=== PATIENT | male | born 1945 | race Caucasian/White ===

== ENCOUNTER → 2017-10-03 10:30 | Outpatient (CLI) | payer MEDICARE, BC, SELFPAY ==
[2017-10-03 13:02] LABS: Prostate Specific Ag, Diagnost 1.35 ng/mL (0.0-4.0)
== END ==
PROVIDERS: PCP Family Medicine; Visit Provider Urology
DX: N40.0 Benign prostatic hyperplasia without lower urinary tract symptoms (principal)
CPT/HCPCS: 36415; 84153

== ENCOUNTER → 2019-04-09 09:33 | Outpatient (CLI) | payer MEDICARE, BC, SELFPAY ==
[2019-04-09 12:31] LABS: Prostate Specific Ag Screen 1.6 ng/mL (0.0-4.0)
== END ==
PROVIDERS: Visit Provider Urology
DX: N40.1 Benign prostatic hyperplasia with lower urinary tract symptoms (principal); Z12.5 Encounter for screening for malignant neoplasm of prostate
CPT/HCPCS: 36415; G0103

== ENCOUNTER → 2020-05-02 14:28 | Outpatient (CLI) | payer MEDICARE, BC, SELFPAY ==
[2020-05-02 17:59] LABS: Prostate Specific Ag Screen 1.5 ng/ml (0.0-4.0)
== END ==
PROVIDERS: Visit Provider Urology
DX: Z12.5 Encounter for screening for malignant neoplasm of prostate (principal)
CPT/HCPCS: 36415; G0103

== ENCOUNTER → 2021-05-02 13:35 | Outpatient (CLI) | payer MEDICARE, BC, SELFPAY | PROVIDERS: Visit Provider Urology | DX: N40.0 Benign prostatic hyperplasia without lower urinary tract symptoms (principal) | CPT/HCPCS: 36415; 84153 ==

== ENCOUNTER → 2022-05-04 14:10 | Outpatient (CLI) | payer MEDICARE, BC, SELFPAY ==
[2022-05-04 15:58] LABS: Prostate Specific Ag Screen 1.3 ng/ml (0.0-4.0)
== END ==
PROVIDERS: PCP Family Medicine; Visit Provider Urology
DX: Z12.5 Encounter for screening for malignant neoplasm of prostate (principal)
CPT/HCPCS: 36415; G0103

== ENCOUNTER 2022-10-28 09:32 | Emergency (ER) | payer MEDICARE, BC, SELFPAY ==
[2022-10-28 09:40] VITALS: BP 112/70; PULSE 72; RESP 20; TEMP 36.6; O2SAT 96; BMI 24.7
--- NOTE | 2022-10-28 09:40 | EXP.UTC ---
Discharge Plan Disposition Patient Disposition: Home, Self-Care Condition: Good Prescriptions Prescriptions: New ciprofloxacin HCl [Cipro] 500 mg tablet 500 mg PO BID 14 Days Qty: 28 0RF No Action esomeprazole magnesium 40 mg capsule,delayed release(DR/EC) 40 mg PO QHS 30 Days Qty: 30 Referrals Follow up/Referrals: Provider,Referral, [Primary Care Provider] - See instructions Activity Restrictions/Add. Instructions Additional Instructions/Restrictions: Drink plenty of fluids. Take tylenol or ibuprofen for pain or fever. Take the medications as directed. Follow up with your regular doctor. GO TO THE ER FOR ANY WORSENING SYMPTOMS Try to follow up in 10 days or so to have your urine rechecked to make sure the infection is completely gone. It could come back once you finish the antibiotics if its not all the way gone. Clinical Impressions Clinical Impression: UTI (urinary tract infection) Instructions Patient Instructions: DI for Urinary Tract Infection (UTI), Ceftriaxone Injection Discharge ED Provider: Adama Akhtar [facility] General Stated complaint: walsh and frequent urinating Time Seen by Provider: 10/28/22 09:40 History of Present Illness Provider Complaint: He states that for the past 2 days he has had dysuria, low back pain. Last night he started having a low grade fever. Related Data Home Medications Medication Instructions Recorded Confirmed esomeprazole magnesium 40 mg 40 mg PO QHS GERD 30 days #30 caps 04/03/18 10/28/22 capsule,delayed release Previous Rx's Medication Instructions Recorded ciprofloxacin HCl 500 mg tablet 500 mg PO BID 14 days #28 tabs 10/28/22 (Cipro) Allergies Allergy/AdvReac Type Severity Reaction Status Date / Time No Known Allergies Allergy Verified 10/28/22 09:59 [facility] Disclaimer: The information contained in this section may have been updated after the patient was seen, as this information can be updated by other users. Social History Smoking Status: Never smoker second hand exposure: No alcohol intake: current counseling provided: none substance use type: other current occupational status: other Travel in the last 8 weeks: None housing: house ROS Obtained: Yes All systems reviewed & no additional complaints except as documented Constitutional Constitutional: Denies chills, Reports fatigue and Reports fever(s) Eyes Eyes: Denies eye discharge ENT Ears, Nose, Mouth, and Throat: Denies dizziness, Denies otalgia and Denies sore throat Cardiovascular Cardiovascular: Denies chest pain Respiratory Respiratory: Denies shortness of breath, Denies chest congestion, Denies cough, Denies stridor and Denies wheezing Gastrointestinal Gastrointestingal: Denies abdominal pain, nausea or vomiting Genitourinary Male Genitourinary: Reports as per HPI, Denies testicular pain, Reports urinary frequency, Reports urinary hesitancy and Denies urinary incontinence Musculoskeletal Musculoskeletal: Reports as per HPI and Reports arthralgias Integumentary/Breasts Skin/Breast: Denies rash Neurologic Neurologic: Denies dizziness and Denies paresthesias Endocrine Endocrine: Reports fatigue Allergic/Immunologic Allergic/Immunologic: Denies wheezing Physical Exam General General appearance: alert and in no apparent distress Head Head exam: atraumatic, normocephalic and normal inspection Eye Eye exam: Present normal appearance, PERRL and EOMI ENT ENT exam: Present normal exam, normal oropharynx, mucous membranes moist, TM's normal bilaterally and normal external ear exam Neck Neck exam: Present normal inspection, full ROM and trachea midline; Absent meningismus or lymphadenopathy Chest Chest inspection: Present normal inspection and symmetric chest wall rise; Absent tenderness Respiratory Respiratory exam: Present normal lung sounds bilaterally; Absent respiratory distress Cardiovascular Cardiovascular ex
[2022-10-28 10:03] LABS: Apearance,Urine Clear (Clear); Color,Urine Yellow (Yellow)
[2022-10-28 10:04] LABS: Bilirubin,Urine Negative (Negative); Blood, Urine Trace (Negative); Glucose,Urine (UA) Negative (Negative); Ketones,Urine Negative (Negative); Protein,Urine Trace (Negative); UTC Leukocyte Esterase,Urine 1+ (Negative); UTC Nitrate,Urine Negative (Negative); Urobilinogen,Urine 0.2 EU/dl (0.2)
[2022-10-28 10:42] VITALS: BP 112/70; PULSE 72; RESP 20; TEMP 36.6; O2SAT 96
== END 2022-10-28 10:42 | disposition home or self-care (01) ==
PROVIDERS: Emergency Provider Nurse Practitioner Family
DX: N39.0 Urinary tract infection, site not specified (principal)
CPT/HCPCS: 81003; 87086; 96372; 99212; 99213; G0463; J0696

== ENCOUNTER 2022-10-30 13:43 | Emergency (ER) | payer MEDICARE, BC, SELFPAY ==
[2022-10-30 13:55] VITALS: BP 139/71; PULSE 77; RESP 19; TEMP 36.5; O2SAT 98; BMI 24.5
--- NOTE | 2022-10-30 14:12 | EXP.UTC ---
Discharge Plan Disposition Patient Disposition: Home, Self-Care Condition: Good Prescriptions Prescriptions: New phenazopyridine [Pyridium] 200 mg tablet 200 mg PO Q8H 2 Days Qty: 6 0RF No Action esomeprazole magnesium 40 mg capsule,delayed release(DR/EC) 40 mg PO QHS 30 Days Qty: 30 ciprofloxacin HCl [Cipro] 500 mg tablet 500 mg PO BID Referrals Follow up/Referrals: Provider,MD Colette [Primary Care Provider] - See instructions Femi Burris MD [Referring] - See instructions (Call office for appointment) Activity Restrictions/Add. Instructions Additional Instructions/Restrictions: Your Urine Culture should be back in the next 48 hours to see if it grows any bacterial Return if needed Call Dr Burris office and make appointment for further evaluation and examination Go straight to the ER if any life threatening symptoms or any worsening of pain Make sure to drink plenty of fluids Follow up with your Family Doctor on Saturday if possible to discuss Urine Culture and further treatment Clinical Impressions Clinical Impression: Burning with urination Instructions Patient Instructions: DI for Dysuria -- Adult Discharge ED Provider: Joanne Patel [facility] General Stated complaint: Possible UTI Burning Mode of Arrival: Ambulatory Source of Information: Patient Limitations: No Limitations Time Seen by Provider: 10/30/22 14:12 Description of Symptoms (Recalled from Triage Doc. by RN): PATIENT REPORTS HE WAS SEEN AND TREATED FOR A UTI 2 DAYS AGO AND STATES SYMPTOMS ARE NOT BETTER. HEENT Symptoms (Recalled from RN notes): No Resp Symptoms (Recalled from RN notes): No Skin Symptoms (Recalled from RN notes): No MS Symptoms (Recalled from RN notes): No Functional Status (Recalled from RN notes): WNL History of Present Illness Provider Complaint: Patient states that he was seen and treated for UTI 2 days ago and back today to get his urine rechecked States that he has been taking the medication and it is a little better but still having some burning when he urinates and wanted to get his urine checked again he thought he would feel better by now Related Data Home Medications Medication Instructions Recorded Confirmed esomeprazole magnesium 40 mg 40 mg PO QHS GERD 30 days #30 caps 04/03/18 10/30/22 capsule,delayed release ciprofloxacin HCl 500 mg tablet 500 mg PO BID UTI 10/30/22 10/30/22 (Cipro) Previous Rx's Medication Instructions Recorded phenazopyridine 200 mg tablet 200 mg PO Q8H pain 2 days #6 tabs 10/30/22 (Pyridium) Allergies Allergy/AdvReac Type Severity Reaction Status Date / Time No Known Allergies Allergy Verified 10/28/22 09:59 Worker's Comp Is this a Worker's Comp case?: No [facility] Disclaimer: The information contained in this section may have been updated after the patient was seen, as this information can be updated by other users. Medical History (Updated 10/30/22 @ 14:41 by Joanne Patel APRN) History of gastroesophageal reflux (GERD) Kidney stone Prostate disorder Urinary tract infection Social History (Updated 10/30/22 @ 14:08 by Apryl Rico RN) Smoking Status: Never smoker second hand exposure: No alcohol intake: current counseling provided: none substance use type: other current occupational status: other Travel in the last 8 weeks: None housing: house ROS Obtained: Yes All systems reviewed & no additional complaints except as documented and Yes Systems reviewed as appropriate & no additional complaints except as documented Constitutional Constitutional: Reports system reviewed and no additional complaints, except as documented, Reports as per HPI, Denies body ache, Denies chills and Denies fever(s) ENT Ears, Nose, Mouth, and Throat: Reports system reviewed and no additional complaints, except as documented and Reports as per HPI Cardiovascular Cardiovascular: Reports system reviewed and no additional compla
[2022-10-30 14:14] LABS: Apearance,Urine Clear (Clear); Bilirubin,Urine Negative (Negative); Blood, Urine Trace (Negative); Color,Urine Dark Yellow (Yellow); Glucose,Urine (UA) Negative (Negative); Ketones,Urine Negative (Negative); PH,Urine 5.5 (5.0-8.5); Protein,Urine Trace (Negative); UTC Leukocyte Esterase,Urine Trace (Negative); UTC Nitrate,Urine Negative (Negative); Urobilinogen,Urine 0.2 EU/dl (0.2)
[2022-10-30 14:22] VITALS: BP 139/71; PULSE 77; RESP 19; TEMP 36.5; O2SAT 98
== END 2022-10-30 14:50 | disposition home or self-care (01) ==
PROVIDERS: Emergency Provider Nurse Practitioner
DX: R30.0 Dysuria (principal)
CPT/HCPCS: 81003; 87086; 99212; G0463

== ENCOUNTER → 2022-10-31 11:08 | Outpatient (CLI) | payer MEDICARE, BC, SELFPAY ==
[2022-10-31 11:36] LABS: MANUAL DIFFERENTIAL MANUAL DIFFERENTIAL (MANUAL DIFF); Microscopic, Urine URINE MICROSCOPIC (MICROSCOPIC)
--- NOTE | 2022-10-31 11:55 | CT_ITS ---
PROCEDURE INFORMATION: Exam: CT Abdomen And Pelvis Without Contrast Exam date and time: 10/31/2022 11:59 AM Age: 77 years old Clinical indication: Patient HX: Pelvic pain, ? stone; Additional info: Stone protocol TECHNIQUE: Imaging protocol: Computed tomography of the abdomen and pelvis without contrast. Radiation optimization: All CT scans at this facility use at least one of these dose optimization techniques: automated exposure control; mA and/or kV adjustment per patient size (includes targeted exams where dose is matched to clinical indication); or iterative reconstruction. Other protocol: This patient has received 0 known CTs and 0 known cardiac nuclear medicine studies in the 12 months prior to the current study. COMPARISON: ABDPELW/O CT ABD PELVIS W/O CONTRAST 12/05/2015 2:22 PM FINDINGS: Limitations: The absence of intravenous contrast limits the assessment of vascular structures, lesions and lymphadenopathy. Lungs: Lung bases are unremarkable. Diaphragm: Small hiatal hernia noted. Liver: There are variably-sized liver cysts. 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 Gallbladder and bile ducts: Gallbladder is distended without radiopaque cholelithiasis. No biliary ductal dilation. Pancreas: No peripancreatic fluid stranding. No main pancreatic ductal dilation. Spleen: No splenomegaly. Adrenal glands: The adrenal glands are normal. Kidneys and ureters: Ptosis of the right kidney. There are variably-sized renal cysts. .Nonobstructive left nephrolithiasis noted. No hydroureteronephrosis on either left side. Stomach and bowel: No bowel wall thickening or distention. Appendix: A normal appendix is identified. Intraperitoneal space: There is no evidence of free intraperitoneal or pelvic fluid. Vasculature: Aorta is nonaneurysmal. Lymph nodes: No evidence of retroperitoneal or mesenteric lymphadenopathy. Urinary bladder: Urinary bladder is unremarkable. Reproductive: Prostate is enlarged. Bones/joints: Unremarkable. No acute fracture. Soft tissues: Unremarkable. IMPRESSION: Ptosis of the right kidney. Punctate nonobstructive left nephrolithiasis without hydroureteronephrosis on either side. COMMENTS: Consistent with the [employer]'s Incidental Findings Committee white paper (J Am Dina Radiol 2018): Any incidental renal lesion less than 1 cm or classified as too small to characterize, or any incidental cystic renal lesion characterized as simple-appearing, is likely benign. No follow-up imaging is recommended for these lesions per consensus recommendations based on imaging criteria.
[2022-10-31 11:58] LABS: Basophils # 0.1 K/mm3 (0-0.2); Basophils % 2.1 % (0.1-2.0); Eosinophils # 0.2 K/mm3 (0.0-0.4); Eosinophils % 3.4 % (0.1-12.0); Hematocrit 44.7 % (42.0-52.0); Hemoglobin 14.6 g/dL (14.1-18.0); Lymphocytes # 1.2 K/mm3 (0.7-4.5); Lymphocytes % 21.6 % (10-50); Mean Corpuscular HGB Conc 32.6 g/dL (31.8-35.4); Mean Corpuscular Hemoglobin 31.9 pg (27.0-31.2); Mean Corpuscular Volume 97.6 fl (80-94); Mean Platelet Volume 8.2 fl (7.4-10.4); Monocytes # 0.3 K/mm3 (0.1-1.0); Monocytes % 5.6 % (1.7-9.3); Neutrophils # 3.8 K/mm3 (1.8-7.8); Neutrophils % 67.3 % (37.0-80.0); Platelet Count 353 K/mm3 (142-424); Red Blood Count 4.58 M/mm3 (4.60-6.20); Red Cell Distribution Width 12.6 % (11.5-17.5); White Blood Count 5.6 K/mm3 (4.8-10.8)
[2022-10-31 12:07] LABS: Appearance,Urine CLEAR (Clear); Bilirubin,Urine Negative (Negative); Blood, Urine Negative (Negative); Color,Urine YELLOW (Yellow); Glucose,Urine (UA) Negative (Negative); Ketones,Urine Negative (Negative); Leukocyte Esterase,Urine TRACE (Negative); Nitrate,Urine POSITIVE (Negative); PH,Urine 6.5 (5.0-8.5); Protein,Urine TRACE (Negative); Specific Gravity, Urine <= 1.005 (1.005-1.030); Urobilinogen,Urine 0.2 EU/dl (0.2)
[2022-10-31 12:34] LABS: Amorphous Sediment,Urine Trace /lpf; Squamous Epithelial Cell,Urine Occasional #/hpf (0-5)
[2022-10-31 12:36] LABS: Alanine Aminotransferase 18 U/L (12-78); Albumin Level 4.2 g/dl (3.5-5.0); Albumin/Globulin Ratio 1.4 (1.1-1.8); Alkaline Phosphatase 69 U/L (38-126); Anion Gap 12.3 mEq/L (5-15); Aspartate Amino Transferase 30 U/L (17-59); Bilirubin,Total 0.6 mg/dl (0.2-1.3); Blood Urea Nitrogen 13 mg/dl (9-20); Calcium 8.8 mg/dl (8.4-10.2); Carbon Dioxide 30 mmol/L (22.0-30.0); Chloride 101 mmol/L (98-107); Estimated Glomerular Filt Rate 73 ml/min (>60); GFR (African American) 88 ML/MIN (>60); Globulin 2.9 g/dL (1.3-3.2); Glucose 99 mg/dl (74-100); Potassium 4.3 mmoL/L (3.5-5.1); Sodium 139 mmol/L (136-145); Total Protein,Serum 7.1 g/dl (6.3-8.2)
[2022-10-31 13:07] LABS: Prostate Specific Ag Screen 19.9 ng/ml (0.0-4.0)
[2022-10-31 13:33] LABS: Eosinophils % 2 % (0-3); Lymphocytes % 22 % (10-50); Monocytes % 7 % (2-9); Neutrophils % 69 % (42-76); Platelet Estimate Normal; RBC Morphology Normal; Total Cells Counted 100
== END ==
PROVIDERS: PCP Family Medicine; Visit Provider Family Medicine
DX: R30.0 Dysuria (principal); R34 Anuria and oliguria; Z12.5 Encounter for screening for malignant neoplasm of prostate
CPT/HCPCS: 36415; 74176; 80053; 81001; 85007; 85014; 85018; 85048; 85049; G0103

== ENCOUNTER → 2023-01-15 14:17 | Outpatient (CLI) | payer MEDICARE, BC, SELFPAY ==
[2023-01-15 16:49] LABS: Alanine Aminotransferase 17 U/L (12-78); Albumin Level 3.9 g/dl (3.5-5.0); Albumin/Globulin Ratio 1.8 (1.1-1.8); Alkaline Phosphatase 74 U/L (38-126); Anion Gap 11.6 mEq/L (5-15); Aspartate Amino Transferase 27 U/L (17-59); Bilirubin,Total 0.5 mg/dl (0.2-1.3); Blood Urea Nitrogen 17 mg/dl (9-20); Calcium 8.6 mg/dl (8.4-10.2); Carbon Dioxide 27 mmol/L (22.0-30.0); Chloride 105 mmol/L (98-107); Chol/HDL Ratio 3.3 (1-3.5); Cholesterol 153 mg/dl (140-200); Estimated Glomerular Filt Rate 65 ml/min (>60); GFR (African American) 79 ML/MIN (>60); Globulin 2.2 g/dL (1.3-3.2); Glucose 99 mg/dl (74-100); HDL Cholesterol 46 mg/dl (40-60); Potassium 4.6 mmoL/L (3.5-5.1); Sodium 139 mmol/L (136-145); Total Protein,Serum 6.1 g/dl (6.3-8.2); Triglycerides 102 mg/dl (30-150); VLDL Cholesterol 20 mg/dL (0-40)
[2023-01-15 17:01] LABS: Direct LDL Cholesterol 83.98 mg/dL (100-129)
== END ==
PROVIDERS: PCP Family Medicine; Visit Provider Family Medicine
DX: Z00.00 Encounter for general adult medical examination without abnormal findings (principal); Z13.6 Encounter for screening for cardiovascular disorders
CPT/HCPCS: 36415; 80053; 80061

== ENCOUNTER 2023-04-23 09:39 | Day surgery (SDC) | payer MEDICARE, BC, SELFPAY ==
[2023-04-23 10:20] VITALS: BP 125/77; PULSE 68; RESP 22; TEMP 36.4; O2SAT 97
[2023-04-23 11:14] VITALS: BP 140/75; PULSE 62; RESP 16; O2SAT 99
[2023-04-23 11:19] VITALS: BP 128/75; PULSE 62; RESP 17; O2SAT 100
[2023-04-23 11:24] VITALS: BP 135/75; PULSE 56; RESP 17; O2SAT 100
[2023-04-23 11:29] VITALS: BP 127/71; PULSE 56; RESP 17; O2SAT 100
[2023-04-23 11:31] VITALS: BP 117/64; PULSE 62; RESP 18; O2SAT 96
== END 2023-04-23 11:45 | disposition home or self-care (01) ==
PROVIDERS: PCP Nurse Practitioner Family; Visit Provider Ophthalmology
DX: H25.811 Combined forms of age-related cataract, right eye (principal)
CPT/HCPCS: 66984; V2632

== ENCOUNTER 2024-08-18 12:19 | Outpatient (CLI) | payer MEDICARE, BC, SELFPAY ==
[2024-08-18 12:07] LABS: Coronavirus 19, PCR Not Detected (NotDetected); Influenza A, PCR Not Detected (NotDetected); Influenza B, PCR Not Detected (NotDetected)
== END 2024-08-18 23:59 | disposition home or self-care (01) ==
LOC: LAB.DROPOF 12:19
PROVIDERS: PCP Internal Medicine; Visit Provider Internal Medicine
DX: R50.9 Fever, unspecified (principal)
CPT/HCPCS: 87636

== ENCOUNTER 2024-09-19 09:53 | Emergency (ER) | payer MEDICARE, BC, SELFPAY ==
[2024-09-19 10:30] VITALS: BP 133/63; PULSE 72; RESP 14; TEMP 36.6; O2SAT 96; BMI 23.7
--- NOTE | 2024-09-19 10:51 | ED_ITS ---
Discharge Plan Disposition Patient Disposition: Home, Self-Care Condition: Good Prescriptions Prescriptions: New amoxicillin 500 mg tablet 500 mg PO BID 10 Days Qty: 20 0RF fluticasone propionate 50 mcg/actuation spray,suspension 1 spray intranasal DAILY Qty: 16 0RF No Action tamsulosin [Flomax] 0.4 mg capsule 0.4 mg PO DAILY Qty: 90 0RF omeprazole 40 mg capsule,delayed release(DR/EC) 40 mg PO DAILY Qty: 90 1RF Referrals Follow up/Referrals: Fidel Lilly DO [Primary Care Provider] - See instructions Activity Restrictions/Add. Instructions Additional Instructions/Restrictions: Start antibiotic patient to take as ordered for a full length of time even if you feel better. Sinus infections do not get better overnight. It may take 2-3 days to notice much improvement so be sure to use conservative measures as discussed for symptoms. Flonase 1 spray each nostril daily to help with nasal congestion, sinus and ear pressure/information Increase fluids Humidifier/vaporizer as needed Tylenol and ibuprofen as needed for fever or pain. If symptoms do not improve or get worse return or be seen in the ER Follow-up with primary care this week Clinical Impressions Clinical Impression: Sinusitis Instructions Patient Instructions: DI for Sinusitis Print Language Print Language: Divehi Discharge ED Provider: Puja ([facility])[place] [facility] [place] General Stated complaint: chest congestion, cough, body aches Mode of Arrival: Ambulatory Source of Information: Patient Limitations: No Limitations Time Seen by Provider: 09/19/24 10:51 Description of Symptoms (Recalled from Triage Doc. by RN): PATIENT C/O COUGH AND CONGESTION FOR APPROX 1 WEEK HEENT Symptoms (Recalled from RN notes): No Resp Symptoms (Recalled from RN notes): Yes Skin Symptoms (Recalled from RN notes): No MS Symptoms (Recalled from RN notes): No Functional Status (Recalled from RN notes): WNL History of Present Illness Provider Complaint: 79-year-old male presents for cough, chest congestion, sinus tenderness and pressure, thick green discharge for over a week. Related Data Previous Rx's ?Medication ?Instructions ?Recorded tamsulosin 0.4 mg capsule (Flomax) 0.4 mg PO DAILY bladder #90 caps 10/22/23 omeprazole 40 mg capsule,delayed 40 mg PO DAILY stomach #90 caps 08/19/24 release amoxicillin 500 mg tablet 500 mg PO BID 10 days #20 tabs 09/19/24 fluticasone propionate 50 1 spray intranasal DAILY #16 grams 09/19/24 mcg/actuation nasal spray,suspension Allergies Allergy/AdvReac Type Severity Reaction Status Date / Time No Known Allergies Allergy Verified 08/18/24 10:24 Worker's Comp Is this a Worker's Comp case?: No [facility] Disclaimer: The information contained in this section may have been updated after the patient was seen, as this information can be updated by other users. 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) Smoking Status: Former smoker second hand exposure: No alcohol intake: current alcohol intake frequency: a few times a month counseling provided: none substance use type: denies use current occupational status: retired Travel in the last 8 weeks: None housing: house marital status: number of children: 2 caffeine: No Have you lived/traveled outside [place] in past 30 days?: No Contact w/someone who lives/traveled outside US past 30 days?: No Exposure to someone with infectious disease in past 14 days?: No Do you have a fever (greater than 100.4 F or 38 C)?: No Have you tested positive for COVID-19: No Exposed to someone with COVID-19 in past 14 days?: No Do you have a sore throat?: No Do you have a cough?: Yes Do you have any weakness?: No Do you have any diarrhea?: No Are you experiencing any unusual bleeding?: No Do you have any muscle aches/pain?: Yes Do you have any abdominal pain?: No Are you experiencing loss of taste or smell?: No ROS Obtained: Yes Systems reviewed as appropriate & no additional complaints except as documented Physical Exam General General appearance: alert Eye Eye exam: Present normal appearance ENT ENT exam: Present normal oropharynx, mucous membranes moist and TM's normal bilaterally Expanded ENT Exam Nose exam: Present sinus tenderness (Maxillary) Respiratory Respiratory exam: Present normal lung sounds bilaterally Cardiovascular Cardiovascular exam: Present regular rate and normal rhythm Neurological Exam Neurological exam: Present alert and oriented X3 Skin Skin exam: Present warm and intact Medical Decision Making Medical Records Medical records reviewed: Yes I reviewed the patient's medical records. Screening: Per USPSTF and CDC recommendations, given the prevalence of disease in our region, it is our hospital?s policy to screen for HIV and viral Hepatitis for all patients aged 18 and over and those with ongoing risk factors. Gareth Inquiry Pt receiving controlled substance: No Vital Signs: 09/19/24 10:30 Temperature 97.9 F Temperature Source Oral Pulse Rate [Left Brachial] 72 Respiratory Rate 14 Blood Pressure [Left Arm] 133/63 Blood Pressure Mean [Left Arm] 86 Blood Pressure Source [Left Arm] Automatic Cuff Blood Pressure Position [Left Arm] Sitting 02 Sat by Pulse Oximetry 96 Oxygen Delivery Method Room Air
[2024-09-19 11:05] VITALS: BP 133/63; PULSE 72; RESP 14; TEMP 36.6; O2SAT 96
== END 2024-09-19 11:09 | disposition home or self-care (01) ==
PROVIDERS: Emergency Provider Nurse Practitioner Family; PCP Internal Medicine
DX: J01.90 Acute sinusitis, unspecified (principal)
CPT/HCPCS: 99213; G0381

== ENCOUNTER 2025-04-21 10:49 | Outpatient (CLI) | payer MEDICARE, BC, SELFPAY ==
[2025-04-21 14:37] LABS: Influenza A, PCR Not Detected (NotDetected); Influenza B, PCR Not Detected (NotDetected)
[2025-04-21 16:30] LABS: Coronavirus 19, PCR Detected (NotDetected)
--- OUTSIDE RECORDS SUMMARY | 2025-04-22 14:44 | XMS_ITS | Clinical Summary ---
Author Organization [facility] Address [address] [place] [id number] Care Team Providers Care Mobile Practice Lead Name Role Phone Dejuan Templeton MD Primary Care Provider + Social History Tobacco Use Types Packs/Day Years Used Date Smoking Tobacco: Never Assessed Abuse Screen Answer Date Recorded Unsafe at Home or Work/School Not on file Feels Threatened by Someone? Not on file 07/2023 Does Anyone Keep You from Co ntacting Others or Doint Things Outside the Home? Not on file 07/10/2023 Physical Sign of Abuse Present Not on file 1 Housing Stability Answer Date Recorded Current Living Arrangements Not on file 06/30 Potentially Unsafe Housing Conditions Not on diana e 07/10/2023 Family and Community Support Answer Tay e Recorded Help with Day-to-Day Activities Not on file 07/10/2023 Lonely or Isolated Not on file 07/10/2023 Employment Answer Date Recorded Do you want help finding or keeping work or a angelic b? Not on file 07/10/2023 Disabilities Answer Date Recorded Concentrating, Remembering, or Making Decisions Difficulty Not on file 07/10/2023 Doing Errands Independently Difficulty Not on fi le 07/10/2023 Education Answer Date Recorded Help with school or training? Not on file Preferred Language Not on file 07/10/2023 Sex and Gender Information Value Date Recorded Sex Assigned at Not on file Legal Sex Male 8:26 AM EST Gender Identity Not on file Sexual Orientation Not on file Plan of Treatment Health Maintenance Due Date Last Done Comments ANNUAL PHYSICAL 1945 HEPATITIS C SCREENING 1945 TDAP/TD VACCINES (1 - Tdap) 1965 Pneumococcal Vaccine 50+ (1 of 1 - PCV) 1996 ZOSTER VACCINE (1 of 2) 1996 RSV Vaccine - Adults (1 - 1-dose 75+ series) COVID-19 Vaccine ( season) 2024 INFLUENZA VACCINE 06/30/2025 Care Teams Mobile Practice Lead Relationship Specialty Start Date End Date Dejuan Templeton MD PCP - General 12/23/15
== END 2025-04-21 23:59 | disposition home or self-care (01) ==
LOC: LAB.DROPOF 04-22 14:42
PROVIDERS: PCP Nurse Practitioner Family; Visit Provider Nurse Practitioner Family
DX: J06.9 Acute upper respiratory infection, unspecified (principal)
CPT/HCPCS: 87631

== ENCOUNTER 2025-09-28 09:56 | Outpatient (CLI) | payer MEDICARE, BC, SELFPAY ==
--- OUTSIDE RECORDS SUMMARY | 2025-09-29 09:24 | XMS_ITS | Clinical Summary ---
Author Organization [facility] Address [address] [place] [id number] Care Team Providers Care Parts Counter Specialist Name Role Phone Dejuan Templeton MD Primary [...] - Adults (1 - 1-dose 75+ series) INFLUENZA VACCINE 04/30/2025 COVID-19 Vaccine ( season) 2025 Care Teams Parts Counter Specialist Relationship Specialty Start Date End Date Dejuan Templeton MD PCP - General 12/23/15
== END 2025-09-28 23:59 | disposition home or self-care (01) ==
LOC: LAB.DROPOF 09-29 09:19
PROVIDERS: PCP Nurse Practitioner Family; Visit Provider Nurse Practitioner Family
DX: N39.0 Urinary tract infection, site not specified (principal)
CPT/HCPCS: 87086; 87088; 87186